=== PATIENT | male | born 1965 | race Caucasian/White ===

== ENCOUNTER 2017-07-06 22:39 | Inpatient (IN) | payer OTHER, BC ==
[2017-07-06] MEDS ORDERED: DIPHTH/TETANUS/ACEL PERTUSSIS (BOOSTER) 0.5 ML VIAL/PFS IM ONE (22:45)
[2017-07-06] MEDS ORDERED: SODIUM CHLORIDE 0.9% FLUSH 10 ML FLUSH IVF PRN (22:45)
[2017-07-06] MEDS ORDERED: ceFAZolin 2 GM PREMIX 50 ML IV ONE (22:45)
[2017-07-06] MEDS ORDERED: ONDANSETRON HCL 4 MG/2 ML VIAL IV PUSH ONE (22:45)
[2017-07-06] MEDS ORDERED: MORPHINE SULFATE 4 MG/ML INJ IV PUSH ONE (22:45)
[2017-07-06 23:00] VITALS: O2SAT 94
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
[2017-07-06 23:16] LABS: INTERNATIONAL NORMALIZED RATIO 0.9 RATIO; PROTHROMBIN TIME - PATIENT 9.9 SEC (9.8-11.6)
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
[2017-07-06 23:32] LABS: BASOPHIL # 0.1 TH/MM3 (0-0.2); BASOPHIL % 0.5 % (0.0-2.0); EOSINOPHIL # 0.1 TH/MM3 (0-0.4); EOSINOPHIL % 0.8 % (0.0-4.0); HEMOGLOBIN 14.4 GM/DL (13.0-17.0); LYMPH % 26.8 % (9.0-44.0); LYMPHOCYTE # 3.6 TH/MM3 (1.0-4.8); MEAN CELL VOLUME 89.9 FL (80.0-100.0); MEAN CORPUSCULAR HEMOGLOBIN 30.9 PG (27.0-34.0); MEAN CORPUSCULAR HGB CONC 34.4 % (32.0-36.0); MEAN PLATELET VOLUME 8.2 FL (7.0-11.0); MONO % 4.8 % (0.0-8.0); MONOCYTE # 0.6 TH/MM3 (0-0.9); NEUT % 67.1 % (16.0-70.0); PLATELET COUNT 272 TH/MM3 (150-450); RED BLOOD COUNT 4.68 MIL/MM3 (4.50-5.90); RED CELL DISTRIBUTION WIDTH 12.5 % (11.6-17.2); WHITE BLOOD COUNT 13.4 TH/MM3 (4.0-11.0)
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
[2017-07-06] MEDS ORDERED: IOHEXOL 350 MG/ML 10 ML VIAL (for RAD DIAG) IVCONTRAST ONE (23:35)
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
[2017-07-07] VITALS: BP 141/74; PULSE 106; RESP 20; O2SAT 97
[2017-07-07] MEDS ORDERED: ONDANSETRON HCL 4 MG/2 ML VIAL IV PUSH PRN (00:15)
[2017-07-07] MEDS ORDERED: SODIUM CHLORIDE 0.9% FLUSH 10 ML FLUSH IV FLUSH PRN (00:15)
[2017-07-07] MEDS ORDERED: HYDROmorphone HCL PF 0.5 MG/0.5 ML SYRINGE IV PRN (00:15)
[2017-07-07] MEDS ORDERED: NALOXONE HCL 0.4 MG/ML AMP IV PUSH PRN (00:15)
[2017-07-07] MEDS ORDERED: ACETAMINOPHEN/HYDROcodone 325 MG/5 MG TAB PO PRN (00:15)
[2017-07-07] MEDS ORDERED: Post-op Orders (for Pharmacy) MISC XX ONE (00:15)
[2017-07-07] MEDS ORDERED: LIDOCAINE 1%/EPINEPHrine 1:100,000 SOLN 20 ML VIAL ONE (00:23)
[2017-07-07] MEDS: SODIUM CHLOR 0.9% 1000 ML INJ 1,000 ML IV SCH ×2 (00:30→13:20)
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
--- NOTE | 2017-07-07 02:03 | PD ---
Physical Exam Date Seen by Provider: Jul 07, 2017 Time Seen by Provider: 02:01 Narrative For full history and physical examination please see previous provider's note. I was asked to repair laceration to patient's scalp. Data Data Last Documented VS Vital Signs Date Time Temp Pulse Resp B/P (MAP) Pulse Ox O2 Delivery O2 Flow Rate FiO2 07/06/17 23:00 94 3.00 07/06/17 23:00 Nasal Cannula Orders Orders I-Stat Profile (07/06/17:44) I-Stat Creatinine (07/06/17:44) Complete Blood Count With Diff (07/06/17:44) Prothrombin Time / Inr (Pt) (07/06/17:44) Act Partial Throm Time (Ptt) (07/06/17:44) Type And Screen (07/06/17:44) Chest, Single Ap (07/06/17:44) Pelvis, Ap Only (Routine) (07/06/17 22:44) Ct Brain W/O Iv Contrast(Rout) (07/06/17:44) Ct Cerv Spine W/O Contrast (07/06/17 22:44) Ct Abd/Pel W Iv Contrast(Rout) (07/06/17 22:44) Ct Thorax/ Chest W Iv Contrast (07/06/17 22:44) Ct Thor Spine W/O Contrast (07/06/17 22:44) Ct Lumb Spine W/O Contrast (07/06/17 22:44) Ct Facial Bones W/O Iv Cont (07/06/17 22:44) Electrocardiogram (07/06/17:44) Iv Access Insert/Monitor (07/06/17:44) Ecg Monitoring (07/06/17:44) Oximetry (07/06/17 22:44) Oxygen Administration (07/06/17:44) Remove Backboard (07/06/17 22:44) Cefazolin 2 Gm Premix (Ancef 2 Gm Premix (07/06/17 22:45) Morphine Inj (Morphine Inj) (07/06/17 22:45) Ondansetron Inj (Zofran Inj) (07/06/17 22:45) Rvxh-Kgp-Slydul (Booster) Inj (Boostrix (07/06/17 22:45) Sodium Chloride 0.9% Flush (Ns Flush) (07/06/17 22:45) Shoulder, Complete (>2vws) (07/06/17 ) Iohexol 350 Inj (Omnipaque 350 Inj) (07/06/17 23:35) Admit Order (Ed Use Only) (07/06/17 23:34) Labs Laboratory Tests Test 07/06/17 22:45 White Blood Count 13.4 TH/MM3 Red Blood Count 4.68 MIL/MM3 Hemoglobin 14.4 GM/DL Bedside Hemoglobin 15.0 G/DL Hematocrit 42.0 % Bedside Hematocrit 44.0 % Mean Corpuscular Volume 89.9 FL Mean Corpuscular Hemoglobin 30.9 PG Mean Corpuscular Hemoglobin Concent 34.4 % Red Cell Distribution Width 12.5 % Platelet Count 272 TH/MM3 Mean Platelet Volume 8.2 FL Neutrophils (%) (Auto) 67.1 % Lymphocytes (%) (Auto) 26.8 % Monocytes (%) (Auto) 4.8 % Eosinophils (%) (Auto) 0.8 % Basophils (%) (Auto) 0.5 % Neutrophils # (Auto) 9.0 TH/MM3 Lymphocytes # (Auto) 3.6 TH/MM3 Monocytes # (Auto) 0.6 TH/MM3 Eosinophils # (Auto) 0.1 TH/MM3 Basophils # (Auto) 0.1 TH/MM3 CBC Comment DIFF FINAL Differential Comment Prothrombin Time 9.9 SEC Prothromb Time International Ratio 0.9 RATIO Activated Partial Thromboplast Time 21.2 SEC Bedside Sodium 136 MMOL/L Bedside Potassium 3.4 MMOL/L Bedside Chloride 98 MMOL/L Bedside Blood Urea Nitrogen 16 MG/DL Bedside Creatinine 1.0 MG/DL Bedside Glucose 311 MG/DL [facility] Medical Record Reviewed: Yes Supervised Visit with SHANTEL: Yes Procedures Procedure Narrative LACERATION LOCATION: Posterior scalp LENGTH: 5 cm x 4 cm NUMBER OF STITCHES/CHRIS: 17 [place] REPAIR: The area of the laceration was prepped with Betadine and sterilely draped. The laceration was infiltrated with 1% lidocaine. The wound was copiously irrigated and explored without evidence of foreign body, tendon injury or neurovascular injury. The wound was closed using chris. This was a 1 layer repair. A sterile dressing was applied. The patient was advised to keep the dressing clean and dry. Patient tolerated the procedure well. Diagnosis Primary Impression: Right pulmonary contusion Qualified Codes: S27.321A - Contusion of lung, unilateral, initial encounter Additional Impressions: Multiple rib fractures Qualified Codes: S22.41XA - Multiple fractures of ribs, right side, initial encounter for closed fracture Scapular fracture Qualified Codes: S42.111A - Displaced fracture of body of scapula, right shoulder, initial encounter for closed fracture Occipital scalp laceration Qualified Codes: S01.01XA - Laceration without foreign body of scalp, initial encounter Facial contusion Qualified Codes: S00.83XA - Contusion of other part of head, initial encounter Closed head injury with loss of consciousness of unknown duration Pneumatocele of lung Scripts No Active Prescriptions or Reported Meds Yazmin Rocha Jul 07, 2017 02:02
[2017-07-07 02:30] VITALS: BP 130/71; PULSE 103; RESP 19; TEMP 99.7; O2SAT 95
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
[2017-07-07] MEDS: PANTOPRAZOLE SOD 40 MG DELAYED RELEASE TAB PO SCH (05:52)
[2017-07-07] MEDS ORDERED: LACTULOSE SYRUP 20 GM/30 ML CUP PO PRN (06:30)
[2017-07-07] MEDS: ACETAMINOPHEN 1000 MG/100 ML 100 ML IV SCH ×3 (06:36→18:21)
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
[2017-07-07 08:00] VITALS: BP 127/67; PULSE 92; RESP 18; TEMP 98.3; O2SAT 95
[2017-07-07] MEDS: METHOCARBAMOL 500 MG TAB PO SCH ×3 (08:50→20:48)
[2017-07-07] MEDS: DOCUSATE SODIUM 50 MG/SENNA 8.6 MG TAB PO SCH ×2 (08:52→20:48)
[2017-07-07] MEDS: SODIUM CHLORIDE 0.9% FLUSH 10 ML FLUSH IV FLUSH SCH ×2 (09:00→20:48)
[2017-07-07] MEDS: LIDOCAINE HCL 5% PATCH T-DERMAL SCH (09:28)
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
[2017-07-07 11:14] LABS: AUTOMATED NEUTROPHIL # 10.9 TH/MM3 (1.8-7.7); BASOPHIL % 0.1 % (0.0-2.0); HEMATOCRIT 37.2 % (39.0-51.0); HEMOGLOBIN 12.7 GM/DL (13.0-17.0); LYMPH % 8.7 % (9.0-44.0); LYMPHOCYTE # 1.1 TH/MM3 (1.0-4.8); MEAN CELL VOLUME 90.2 FL (80.0-100.0); MEAN CORPUSCULAR HEMOGLOBIN 30.8 PG (27.0-34.0); MEAN CORPUSCULAR HGB CONC 34.1 % (32.0-36.0); MONO % 6.4 % (0.0-8.0); MONOCYTE # 0.8 TH/MM3 (0-0.9); NEUT % 84.8 % (16.0-70.0); PLATELET COUNT 197 TH/MM3 (150-450); RED BLOOD COUNT 4.12 MIL/MM3 (4.50-5.90); RED CELL DISTRIBUTION WIDTH 12.6 % (11.6-17.2); WHITE BLOOD COUNT 12.9 TH/MM3 (4.0-11.0)
[2017-07-07 11:33] LABS: ALBUMIN 3.5 GM/DL (3.4-5.0); ALT (GPT) 76 U/L (12-78); AST (GOT) 53 U/L (15-37); BICARBONATE 26.5 MEQ/L (21.0-32.0); BLOOD UREA NITROGEN 15 MG/DL (7-18); CALCIUM 8.3 MG/DL (8.5-10.1); CHLORIDE 104 MEQ/L (98-107); CREATININE 0.89 MG/DL (0.60-1.30); GLOMERULAR FILTRATION RATE 90 ML/MIN (>89); GLUCOSE,RANDOM 244 MG/DL (74-106); SODIUM (NA) 135 MEQ/L (136-145)
[2017-07-07 11:36] LABS: ALKALINE PHOSPHATASE 76 U/L (45-117); TOTAL BILIRUBIN ADULT 0.9 MG/DL (0.2-1.0); TOTAL PROTEIN 6.4 GM/DL (6.4-8.2)
[2017-07-07 12:00] VITALS: BP 132/63; PULSE 73; RESP 18; TEMP 96.4; O2SAT 97
--- NOTE | 2017-07-07 13:20 | EKG ---
Date Performed: 07/06/2017 Time Performed: 23:39:52 PTAGE: 52 years EKG: SINUS TACHYCARDIA ABNORMAL RHYTHM ECG NO PREVIOUS TRACING DOCTOR: Edwina Castellanos Interpretating Date/Time 07/07/2017 13:19:45
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
[2017-07-07] MEDS: BACITRACIN TOP OINT 15 GM TUBE TOP SCH ×2 (15:46→20:50)
[2017-07-07 16:00] VITALS: BP 122/64; PULSE 78; RESP 18; TEMP 97.1; O2SAT 98
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
[2017-07-07 20:15] VITALS: BP 142/66; PULSE 73; RESP 18; TEMP 98.3; O2SAT 94
[2017-07-07] MEDS: REMOVE OLD PATCH-LIDOCAINE T-DERMAL SCH (20:48)
[2017-07-08] VITALS (7 sets, daily range): BP systolic 134–159; BP diastolic 54–86; PULSE 69–100; RESP 18–20; TEMP 98–99.4; O2SAT 91–96
[2017-07-08] MEDS: ACETAMINOPHEN 1000 MG/100 ML 100 ML IV SCH (00:08)
[2017-07-08] MEDS: SODIUM CHLOR 0.9% 1000 ML INJ 1,000 ML IV SCH ×2 (00:10→05:20)
[2017-07-08] MEDS: METHOCARBAMOL 500 MG TAB PO SCH ×3 (05:13→21:11)
[2017-07-08] MEDS: PANTOPRAZOLE SOD 40 MG DELAYED RELEASE TAB PO SCH (05:13)
[2017-07-08] MEDS: HYDROmorphone HCL PF 0.5 MG/0.5 ML SYRINGE IV PRN ×3 (05:14→19:49)
--- NOTE | 2017-07-08 06:48 | RADRPT ---
EXAM DATE/TIME: 07/08/2017 06:58 [facility] COMPARISON: CHEST SINGLE AP, July 07, 2017, 6:04. INDICATIONS : Chest and rib pain, short of breath MEDICAL HISTORY : right apical pneumothorax SURGICAL HISTORY : None. ENCOUNTER: Subsequent ACUITY: 2 days PAIN SCORE: 7/10 LOCATION: Bilateral chest FINDINGS: A single view of the chest demonstrates the lungs to be symmetrically aerated without evidence of mas s, infiltrate or effusion. The cardiomediastinal contours are unremarkable. Multiple right-sided rib fractures. No pneumothorax. Minimal subcutaneous emphysema on the right. CONCLUSION: Multiple right-sided rib fractures without pneumothorax. Vic Davis MD on July 08, 2017 at 6:43 Board Certified Radiologist. This report was verified electronically.
[2017-07-08] MEDS: DOCUSATE SODIUM 50 MG/SENNA 8.6 MG TAB PO SCH ×2 (08:38→21:12)
[2017-07-08] MEDS: SODIUM CHLORIDE 0.9% FLUSH 10 ML FLUSH IV FLUSH SCH ×2 (08:39→21:12)
[2017-07-08] MEDS: BACITRACIN TOP OINT 15 GM TUBE TOP SCH ×2 (08:39→21:12)
[2017-07-08] MEDS: LIDOCAINE HCL 5% PATCH T-DERMAL SCH (08:39)
[2017-07-08 09:01] LABS: BASOPHIL % 0.1 % (0.0-2.0); EOSINOPHIL % 0.4 % (0.0-4.0); HEMATOCRIT 35.6 % (39.0-51.0); HEMOGLOBIN 11.9 GM/DL (13.0-17.0); LYMPH % 15.9 % (9.0-44.0); LYMPHOCYTE # 1.5 TH/MM3 (1.0-4.8); MEAN CELL VOLUME 91.1 FL (80.0-100.0); MEAN CORPUSCULAR HEMOGLOBIN 30.5 PG (27.0-34.0); MEAN CORPUSCULAR HGB CONC 33.5 % (32.0-36.0); MEAN PLATELET VOLUME 7.9 FL (7.0-11.0); MONO % 6.9 % (0.0-8.0); MONOCYTE # 0.6 TH/MM3 (0-0.9); NEUT % 76.7 % (16.0-70.0); PLATELET COUNT 170 TH/MM3 (150-450); RED CELL DISTRIBUTION WIDTH 12.8 % (11.6-17.2); WHITE BLOOD COUNT 9.2 TH/MM3 (4.0-11.0)
[2017-07-08 10:02] LABS: BICARBONATE 23.4 MEQ/L (21.0-32.0); CALCIUM 8.6 MG/DL (8.5-10.1); CREATININE 0.66 MG/DL (0.60-1.30)
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
[2017-07-08] MEDS ORDERED: LACTULOSE SYRUP 20 GM/30 ML CUP PO ONE (17:15)
[2017-07-08] MEDS ORDERED: GLUCAGON 1 MG/ML VIAL OTHER PRN (17:15)
[2017-07-08] MEDS ORDERED: DEXTROSE 50% IN WATER 50 ML VIAL(D50) IV PUSH PRN (17:15)
[2017-07-08] MEDS ORDERED: QUAD CANE/LARGE1 MI5 (17:19)
--- NOTE | 2017-07-08 17:29 | HHI.FF ---
Face to Face Verification Diagnosis: (1) Lumbar compression fracture (2) Multiple rib fractures (3) Scapular fracture (4) Closed head injury with loss of consciousness of unknown duration Physical Therapy Order: Evaluate and Treat, Improve ambulation, Strength and gait training Home Health Nursing Order: Nursing assessment with vital signs I have seen patient Richar Farah on 07/08/17. My clinical findings support the need for the requested home health care services because: Limited ability to care for self High risk of falls I certify that my clinical findings support that this patient is homebound because: Unsteady gait/balance Carmelina Ocampo Jul 08, 2017 17:29
[2017-07-08] MEDS: REMOVE OLD DURAGESIC (FENTANYL) PATCH T-DERMAL SCH (18:00)
[2017-07-08] MEDS: fentaNYL 50 MCG/HR PATCH T-DERMAL SCH (18:07)
[2017-07-08] MEDS: ENOXAPARIN SODIUM 40 MG/0.4 ML SYRINGE SQ SCH (18:09)
[2017-07-08] MEDS: REMOVE OLD PATCH-LIDOCAINE T-DERMAL SCH (21:10)
[2017-07-08] MEDS: INSULIN NovoLIN REGULAR SUPPLEMENTAL SCALE SQ SCH (21:19)
[2017-07-09] VITALS (7 sets, daily range): BP systolic 132–168; BP diastolic 73–83; PULSE 80–117; RESP 17–20; TEMP 98.4–99.7; O2SAT 85–95
[2017-07-09] MEDS: PANTOPRAZOLE SOD 40 MG DELAYED RELEASE TAB PO SCH (05:04)
[2017-07-09] MEDS: METHOCARBAMOL 500 MG TAB PO SCH ×3 (05:04→21:25)
[2017-07-09] MEDS: HYDROmorphone HCL PF 0.5 MG/0.5 ML SYRINGE IV PRN ×2 (05:04→09:56)
[2017-07-09] MEDS: INSULIN NovoLIN REGULAR SUPPLEMENTAL SCALE SQ SCH ×4 (08:00→21:49)
[2017-07-09] MEDS ORDERED: MAGNESIUM CITRATE SOLN 300 ML BTL PO ONE (08:00)
[2017-07-09] MEDS: DOCUSATE SODIUM 50 MG/SENNA 8.6 MG TAB PO SCH ×2 (08:50→21:00)
[2017-07-09] MEDS: LIDOCAINE HCL 5% PATCH T-DERMAL SCH (09:56)
[2017-07-09] MEDS: SODIUM CHLORIDE 0.9% FLUSH 10 ML FLUSH IV FLUSH SCH ×2 (09:57→21:00)
[2017-07-09] MEDS: BACITRACIN TOP OINT 15 GM TUBE TOP SCH ×2 (09:57→21:00)
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
[2017-07-09 15:51] LABS: HEMOGLOBIN A1C 11.9 % (4.3-6.0)
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
[2017-07-09] MEDS: ENOXAPARIN SODIUM 40 MG/0.4 ML SYRINGE SQ SCH (17:55)
[2017-07-09] MEDS: REMOVE OLD PATCH-LIDOCAINE T-DERMAL SCH (21:00)
[2017-07-10] VITALS (11 sets, daily range): BP systolic 117–171; BP diastolic 63–86; PULSE 80–110; RESP 16–20; TEMP 98–98.9; O2SAT 84–97
[2017-07-10] MEDS: RESP: ALBUTEROL 2.5 MG/IPRATROPIUM 0.5 MG NEB (PRN) NEB ×3 (04:24→19:54)
--- NOTE | 2017-07-10 04:26 | RADRPT ---
EXAM DATE/TIME: 07/10/2017 04:29 [facility] COMPARISON: CHEST SINGLE AP, July 08, 2017, 6:58. INDICATIONS : Short of breath. MEDICAL HISTORY : None. SURGICAL HISTORY : None. ENCOUNTER: Subsequent ACUITY: 4 - 6 days PAIN SCORE: 0/10 LOCATION: Bilateral chest FINDINGS: A single view of the chest demonstrates bibasilar densities greater right lower lobe. The cardiomedia stinal contours are unremarkable. Bilateral rib fractures. CONCLUSION: Worsening bibasilar densities. Vic Davis MD on July 10, 2017 at 4:23 Board Certified Radiologist. This report was verified electronically.
[2017-07-10] MEDS: PANTOPRAZOLE SOD 40 MG DELAYED RELEASE TAB PO SCH (05:51)
[2017-07-10] MEDS: METHOCARBAMOL 500 MG TAB PO SCH ×3 (05:51→21:40)
[2017-07-10] MEDS ORDERED: ENALAPRILAT 1.25 MG/ML VIAL IV PUSH PRN (08:00)
[2017-07-10] MEDS: LIDOCAINE HCL 5% PATCH T-DERMAL SCH (08:27)
[2017-07-10] MEDS: metFORMIN HCL 500 MG TAB PO SCH ×2 (08:28→18:28)
[2017-07-10] MEDS: LISINOPRIL 20 MG TAB PO SCH (08:28)
[2017-07-10] MEDS: DOCUSATE SODIUM 50 MG/SENNA 8.6 MG TAB PO SCH ×2 (08:30→21:00)
[2017-07-10] MEDS: SODIUM CHLORIDE 0.9% FLUSH 10 ML FLUSH IV FLUSH SCH ×2 (08:30→21:00)
[2017-07-10] MEDS: BACITRACIN TOP OINT 15 GM TUBE TOP SCH ×2 (08:31→21:45)
[2017-07-10 09:48] LABS: AUTOMATED NEUTROPHIL # 7.2 TH/MM3 (1.8-7.7); BASOPHIL % 0.2 % (0.0-2.0); EOSINOPHIL # 0.1 TH/MM3 (0-0.4); EOSINOPHIL % 0.6 % (0.0-4.0); HEMATOCRIT 36.2 % (39.0-51.0); HEMOGLOBIN 12.5 GM/DL (13.0-17.0); LYMPH % 10.1 % (9.0-44.0); LYMPHOCYTE # 0.9 TH/MM3 (1.0-4.8); MEAN CELL VOLUME 89.8 FL (80.0-100.0); MEAN CORPUSCULAR HEMOGLOBIN 30.9 PG (27.0-34.0); MEAN CORPUSCULAR HGB CONC 34.5 % (32.0-36.0); MEAN PLATELET VOLUME 7.6 FL (7.0-11.0); MONO % 7.9 % (0.0-8.0); MONOCYTE # 0.7 TH/MM3 (0-0.9); NEUT % 81.2 % (16.0-70.0); PLATELET COUNT 198 TH/MM3 (150-450); RED BLOOD COUNT 4.03 MIL/MM3 (4.50-5.90); RED CELL DISTRIBUTION WIDTH 12.6 % (11.6-17.2); WHITE BLOOD COUNT 8.9 TH/MM3 (4.0-11.0)
[2017-07-10 10:11] LABS: BICARBONATE 28.9 MEQ/L (21.0-32.0); CALCIUM 8.7 MG/DL (8.5-10.1); CREATININE 0.61 MG/DL (0.60-1.30)
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
[2017-07-10] MEDS: RESP: ACETYLCYSTEINE 10% 30 ML NEB NEB SCH ×2 (16:00→19:54)
[2017-07-10] MEDS: ENOXAPARIN SODIUM 40 MG/0.4 ML SYRINGE SQ SCH (18:28)
[2017-07-10] MEDS ORDERED: SENN1TAB PO (20:45)
[2017-07-10] MEDS: LACTULOSE SYRUP 20 GM/30 ML CUP PO SCH (20:45)
[2017-07-10] MEDS ORDERED: MAGN400S PO (20:45)
[2017-07-10] MEDS: REMOVE OLD PATCH-LIDOCAINE T-DERMAL SCH (21:00)
[2017-07-10] MEDS: MAGNESIUM HYDROXIDE SUSP 30 ML CUP PO SCH (21:00)
[2017-07-11] VITALS (8 sets, daily range): BP systolic 122–128; BP diastolic 57–67; PULSE 85–91; RESP 18–20; TEMP 97.5–98.8; O2SAT 91–96
[2017-07-11] MEDS: RESP: ALBUTEROL 2.5 MG/IPRATROPIUM 0.5 MG NEB (PRN) NEB ×6 (00:43→21:04)
[2017-07-11] MEDS: RESP: ACETYLCYSTEINE 10% 30 ML NEB NEB SCH ×6 (03:52→20:00)
[2017-07-11] MEDS: METHOCARBAMOL 500 MG TAB PO SCH ×3 (05:38→20:47)
[2017-07-11] MEDS: PANTOPRAZOLE SOD 40 MG DELAYED RELEASE TAB PO SCH (05:38)
[2017-07-11] MEDS: metFORMIN HCL 500 MG TAB PO SCH ×2 (08:06→16:17)
[2017-07-11] MEDS: BACITRACIN TOP OINT 15 GM TUBE TOP SCH ×2 (08:07→20:46)
[2017-07-11] MEDS: DOCUSATE SODIUM 50 MG/SENNA 8.6 MG TAB PO SCH ×2 (08:07→20:46)
[2017-07-11] MEDS: LISINOPRIL 20 MG TAB PO SCH (08:07)
[2017-07-11] MEDS: LACTULOSE SYRUP 20 GM/30 ML CUP PO SCH (08:07)
[2017-07-11] MEDS: SODIUM CHLORIDE 0.9% FLUSH 10 ML FLUSH IV FLUSH SCH ×2 (08:07→20:45)
[2017-07-11] MEDS: LIDOCAINE HCL 5% PATCH T-DERMAL SCH (08:08)
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
[2017-07-11] MEDS ORDERED: IBUPROFEN 600 MG TAB PO SCH (12:30)
--- NOTE | 2017-07-11 14:25 | PD.CONS ---
HPI Consult Requested By Diagnoses: Past Family Social History Allergies: Coded Allergies: No Known Allergies (Unverified , 07/06/17) Physical Exam Vital Signs Result Diagram: 07/10/1722 07/10/1722 Doreen Dove MD Jul 11, 2017 14:25
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
[2017-07-11] MEDS ORDERED: GLUCAGON 1 MG/ML VIAL OTHER PRN (14:45)
[2017-07-11] MEDS ORDERED: DEXTROSE 50% IN WATER 50 ML VIAL(D50) IV PUSH PRN (14:45)
[2017-07-11] MEDS: ENOXAPARIN SODIUM 40 MG/0.4 ML SYRINGE SQ SCH (16:17)
[2017-07-11] MEDS: INSULIN ASPART SUPPLEMENTAL SCALE SQ SCH ×2 (16:18→20:46)
[2017-07-11] MEDS: fentaNYL 50 MCG/HR PATCH T-DERMAL SCH (16:21)
[2017-07-11] MEDS: REMOVE OLD DURAGESIC (FENTANYL) PATCH T-DERMAL SCH (16:22)
[2017-07-11] MEDS: MAGNESIUM HYDROXIDE SUSP 30 ML CUP PO SCH (20:45)
[2017-07-11] MEDS: REMOVE OLD PATCH-LIDOCAINE T-DERMAL SCH (20:49)
[2017-07-12] VITALS (10 sets, daily range): BP systolic 103–159; BP diastolic 57–88; PULSE 88–93; RESP 13–20; TEMP 97.8–99.4; O2SAT 94–98
[2017-07-12] MEDS: RESP: ACETYLCYSTEINE 10% 30 ML NEB NEB SCH ×6 (01:39→21:50)
[2017-07-12] MEDS: RESP: ALBUTEROL 2.5 MG/IPRATROPIUM 0.5 MG NEB (PRN) NEB ×5 (01:41→21:50)
[2017-07-12] MEDS: METHOCARBAMOL 500 MG TAB PO SCH ×3 (04:32→21:18)
[2017-07-12] MEDS: PANTOPRAZOLE SOD 40 MG DELAYED RELEASE TAB PO SCH (04:32)
[2017-07-12 06:59] LABS: AUTOMATED NEUTROPHIL # 3.1 TH/MM3 (1.8-7.7); BASOPHIL % 0.5 % (0.0-2.0); EOSINOPHIL # 0.2 TH/MM3 (0-0.4); HEMATOCRIT 33.7 % (39.0-51.0); HEMOGLOBIN 11.6 GM/DL (13.0-17.0); LYMPHOCYTE # 0.9 TH/MM3 (1.0-4.8); MEAN CELL VOLUME 90.3 FL (80.0-100.0); MEAN CORPUSCULAR HEMOGLOBIN 31.1 PG (27.0-34.0); MEAN CORPUSCULAR HGB CONC 34.4 % (32.0-36.0); MEAN PLATELET VOLUME 7.7 FL (7.0-11.0); MONO % 16.2 % (0.0-8.0); MONOCYTE # 0.8 TH/MM3 (0-0.9); NEUT % 61.3 % (16.0-70.0); PLATELET COUNT 248 TH/MM3 (150-450); RED BLOOD COUNT 3.74 MIL/MM3 (4.50-5.90); RED CELL DISTRIBUTION WIDTH 12.3 % (11.6-17.2); WHITE BLOOD COUNT 5.1 TH/MM3 (4.0-11.0)
[2017-07-12 07:03] LABS: ALBUMIN 2.8 GM/DL (3.4-5.0); AST (GOT) 23 U/L (15-37); BICARBONATE 28.4 MEQ/L (21.0-32.0); BLOOD UREA NITROGEN 27 MG/DL (7-18); CALCIUM 9.1 MG/DL (8.5-10.1); CHLORIDE 96 MEQ/L (98-107); CREATININE 0.69 MG/DL (0.60-1.30); GLOMERULAR FILTRATION RATE 120 ML/MIN (>89); GLUCOSE,RANDOM 184 MG/DL (74-106); SODIUM (NA) 133 MEQ/L (136-145)
[2017-07-12 07:04] LABS: ALT (GPT) 47 U/L (12-78)
[2017-07-12 07:06] LABS: ALKALINE PHOSPHATASE 67 U/L (45-117); TOTAL BILIRUBIN ADULT 1.1 MG/DL (0.2-1.0); TOTAL PROTEIN 6.1 GM/DL (6.4-8.2)
[2017-07-12] MEDS: INSULIN ASPART SUPPLEMENTAL SCALE SQ SCH ×4 (08:00→21:00)
--- NOTE | 2017-07-12 08:36 | RADRPT ---
EXAM DATE/TIME: 07/12/2017 08:01 [facility] COMPARISON: CHEST SINGLE AP, July 10, 2017, 4:29. INDICATIONS : Shortness of breath and right sided chest and arm pain. MEDICAL HISTORY : Right apical pneumothorax. SURGICAL HISTORY : None. ENCOUNTER: Initial ACUITY: 4 - 6 days PAIN SCORE: 4/10 LOCATION: Right chest FINDINGS: There is slight interval worsening of the right apical pneumothorax which now measures 18 mm in size. Multiple fractures of the right rib cage are again noted. Fracture of the right scapula is also ag ain noted. Bibasilar atelectasis is noted. The heart is stable. CONCLUSION: 1. Interval slight worsening of the right apical pneumothorax which measures 18 mm. 2. Bibasilar atelectasis. 3. Multiple fractures of the right rib cage and scapula are noted. Alfredo Beckett MD on July 12, 2017 at 8:01 Board Certified Radiologist. This report was verified electronically.
[2017-07-12] MEDS: metFORMIN HCL 500 MG TAB PO SCH ×2 (08:44→17:14)
[2017-07-12] MEDS: LISINOPRIL 20 MG TAB PO SCH (08:44)
[2017-07-12] MEDS: LIDOCAINE HCL 5% PATCH T-DERMAL SCH (08:45)
[2017-07-12] MEDS: LACTULOSE SYRUP 20 GM/30 ML CUP PO SCH (08:45)
[2017-07-12] MEDS: DOCUSATE SODIUM 50 MG/SENNA 8.6 MG TAB PO SCH ×2 (08:45→21:00)
[2017-07-12] MEDS: BACITRACIN TOP OINT 15 GM TUBE TOP SCH ×2 (08:47→21:00)
[2017-07-12] MEDS: SODIUM CHLORIDE 0.9% FLUSH 10 ML FLUSH IV FLUSH SCH ×2 (08:52→21:00)
[2017-07-12] MEDS: ENOXAPARIN SODIUM 40 MG/0.4 ML SYRINGE SQ SCH (10:27)
[2017-07-12] MEDS: glyBURIDE 5 MG TAB PO SCH (12:00)
[2017-07-12] MEDS ORDERED: SODIUM CHLOR 0.9% 1000 ML INJ 1,000 ML IV SCH (12:30)
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
[2017-07-12] MEDS ORDERED: MIDAZOLAM HCL 2 MG/2 ML VIAL ONE (15:03)
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
--- NOTE | 2017-07-12 16:51 | RADRPT ---
EXAM DATE/TIME: 07/12/2017 16:29 [facility] COMPARISON: CHEST SINGLE AP, July 12, 2017, 8:01. INDICATIONS : Post right sided chest tube placement MEDICAL HISTORY : None. SURGICAL HISTORY : None. ENCOUNTER: Initial ACUITY: 1 day PAIN SCORE: 5/10 LOCATION: Right chest FINDINGS: Expiratory view of the chest after placement of a right chest catheter the right apex demonstrates re solution of the right pneumothorax. There is persistent patchy areas of infiltrate in the lower lung s. Incidental note of azygous lobe. The heart is normal size. CONCLUSION: Resolution of right apical pneumothorax status post chest catheter placement. Felix Duvall MD on July 12, 2017 at 16:48 Board Certified Radiologist. This report was verified electronically.
--- NOTE | 2017-07-12 16:57 | PD.RAD ---
Post Procedure Progress Note Pre Procedure Diagnosis: (1) Pneumothorax, right (2) Multiple rib fractures Post Procedure Diagnosis: (1) Multiple rib fractures (2) Pneumothorax, right Procedure Date: Jul 12, 2017 Supervising Radiologist: Carlos Martinez Proceduralist/Assist: Daniel Quiroz, RT(R), Deborah Lucas RT(R) Anesthesia: Local, Analgesia, Conscious Sedation Plan of Activity Patient to Unit: ROPU Patient Condition: Good See PACS Report for procedural detail/treatment Drainage Procedure Procedure 1 Imaging Guidance: Fluoroscopy Side: Right Procedure Type: Chest Tube Non-Tunneled Procedure: Placement [place]: 10 Drainage: Pleurovac (40 cm) Fluid Description: Bloody Carlos Martinez MD Jul 12, 2017 16:57
[2017-07-12] MEDS: MAGNESIUM HYDROXIDE SUSP 30 ML CUP PO SCH (21:00)
[2017-07-12] MEDS: REMOVE OLD PATCH-LIDOCAINE T-DERMAL SCH (21:00)
[2017-07-13] VITALS (7 sets, daily range): BP systolic 128–144; BP diastolic 64–73; PULSE 82–94; RESP 18–19; TEMP 98–98.7; O2SAT 94–97
[2017-07-13] MEDS: RESP: ALBUTEROL 2.5 MG/IPRATROPIUM 0.5 MG NEB (PRN) NEB ×6 (00:04→19:41)
[2017-07-13] MEDS: RESP: ACETYLCYSTEINE 10% 30 ML NEB NEB SCH ×6 (04:00→19:41)
[2017-07-13] MEDS: PANTOPRAZOLE SOD 40 MG DELAYED RELEASE TAB PO SCH (04:11)
[2017-07-13] MEDS: METHOCARBAMOL 500 MG TAB PO SCH ×3 (04:11→21:50)
--- NOTE | 2017-07-13 05:47 | RADRPT ---
EXAM DATE/TIME: 07/13/2017 05:57 [facility] COMPARISON: CHEST EXPIRATION ONLY, July 12, 2017, 16:29. INDICATIONS : Pneumothorax. MEDICAL HISTORY : None. SURGICAL HISTORY : None. ENCOUNTER: Subsequent ACUITY: 1 week PAIN SCORE: Non-responsive. LOCATION: Bilateral chest FINDINGS: Small caliber chest tube again noted on the right. No pneumothorax seen. Multiple right rib fractures are again seen. There is mild bibasilar atelectasis not significantly changed. No large effusion. Heart size stable, upper limits of normal. CONCLUSION: No significant change. Rib fractures and a chest tube again seen on the right. No perceptible pneumot horax. Stanton Ordonez MD on July 13, 2017 at 5:45 Board Certified Radiologist. This report was verified electronically.
[2017-07-13] MEDS: LACTULOSE SYRUP 20 GM/30 ML CUP PO SCH (07:37)
[2017-07-13] MEDS: DOCUSATE SODIUM 50 MG/SENNA 8.6 MG TAB PO SCH ×3 (07:37→21:00)
[2017-07-13] MEDS: INSULIN ASPART SUPPLEMENTAL SCALE SQ SCH ×4 (08:00→21:00)
[2017-07-13] MEDS: SODIUM CHLORIDE 0.9% FLUSH 10 ML FLUSH IV FLUSH SCH ×2 (08:56→21:51)
[2017-07-13] MEDS: BACITRACIN TOP OINT 15 GM TUBE TOP SCH ×2 (08:57→21:54)
[2017-07-13] MEDS: LISINOPRIL 20 MG TAB PO SCH (08:57)
[2017-07-13] MEDS: metFORMIN HCL 500 MG TAB PO SCH ×2 (08:57→16:52)
[2017-07-13] MEDS: LIDOCAINE HCL 5% PATCH T-DERMAL SCH (08:57)
[2017-07-13] MEDS: glyBURIDE 5 MG TAB PO SCH (09:00)
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
[2017-07-13] MEDS: ENOXAPARIN SODIUM 40 MG/0.4 ML SYRINGE SQ SCH (16:52)
[2017-07-13] MEDS: REMOVE OLD PATCH-LIDOCAINE T-DERMAL SCH (21:00)
[2017-07-13] MEDS: MAGNESIUM HYDROXIDE SUSP 30 ML CUP PO SCH (21:00)
[2017-07-14] VITALS (8 sets, daily range): BP systolic 130–149; BP diastolic 62–71; PULSE 85–91; RESP 18–20; TEMP 97.8–98.7; O2SAT 93–95
[2017-07-14] MEDS: RESP: ACETYLCYSTEINE 10% 30 ML NEB NEB SCH ×3 (04:00→08:00)
[2017-07-14] MEDS: RESP: ALBUTEROL 2.5 MG/IPRATROPIUM 0.5 MG NEB (PRN) NEB ×2 (04:19→08:46)
[2017-07-14] MEDS: PANTOPRAZOLE SOD 40 MG DELAYED RELEASE TAB PO SCH (05:26)
[2017-07-14] MEDS: METHOCARBAMOL 500 MG TAB PO SCH ×3 (05:26→21:59)
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
[2017-07-14] MEDS: INSULIN ASPART SUPPLEMENTAL SCALE SQ SCH ×4 (08:00→21:00)
[2017-07-14] MEDS: BACITRACIN TOP OINT 15 GM TUBE TOP SCH ×2 (09:00→21:59)
[2017-07-14] MEDS: LACTULOSE SYRUP 20 GM/30 ML CUP PO SCH (09:00)
[2017-07-14] MEDS: SODIUM CHLORIDE 0.9% FLUSH 10 ML FLUSH IV FLUSH SCH ×2 (09:00→21:58)
[2017-07-14] MEDS: DOCUSATE SODIUM 50 MG/SENNA 8.6 MG TAB PO SCH ×2 (09:00→21:00)
[2017-07-14] MEDS: LIDOCAINE HCL 5% PATCH T-DERMAL SCH (09:09)
[2017-07-14] MEDS: metFORMIN HCL 500 MG TAB PO SCH ×2 (09:09→17:33)
[2017-07-14] MEDS: glyBURIDE 5 MG TAB PO SCH (09:09)
[2017-07-14] MEDS: LISINOPRIL 20 MG TAB PO SCH (09:09)
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
[2017-07-14] MEDS: ENOXAPARIN SODIUM 40 MG/0.4 ML SYRINGE SQ SCH (17:33)
[2017-07-14] MEDS: fentaNYL 50 MCG/HR PATCH T-DERMAL SCH (17:33)
[2017-07-14] MEDS: REMOVE OLD DURAGESIC (FENTANYL) PATCH T-DERMAL SCH (17:33)
[2017-07-14] MEDS: MAGNESIUM HYDROXIDE SUSP 30 ML CUP PO SCH (21:00)
[2017-07-14] MEDS: REMOVE OLD PATCH-LIDOCAINE T-DERMAL SCH (21:00)
[2017-07-15] VITALS (7 sets, daily range): BP systolic 123–136; BP diastolic 57–66; PULSE 84–95; RESP 18–20; TEMP 97.1–98.2; O2SAT 90–98
[2017-07-15 03:29] LABS: AUTOMATED NEUTROPHIL # 4.8 TH/MM3 (1.8-7.7); BASOPHIL % 0.4 % (0.0-2.0); EOSINOPHIL # 0.1 TH/MM3 (0-0.4); HEMATOCRIT 33.5 % (39.0-51.0); HEMOGLOBIN 11.6 GM/DL (13.0-17.0); LYMPH % 20.4 % (9.0-44.0); LYMPHOCYTE # 1.5 TH/MM3 (1.0-4.8); MEAN CELL VOLUME 89.7 FL (80.0-100.0); MEAN CORPUSCULAR HEMOGLOBIN 31.1 PG (27.0-34.0); MEAN CORPUSCULAR HGB CONC 34.7 % (32.0-36.0); MEAN PLATELET VOLUME 7.1 FL (7.0-11.0); MONO % 12.8 % (0.0-8.0); NEUT % 64.4 % (16.0-70.0); PLATELET COUNT 291 TH/MM3 (150-450); RED BLOOD COUNT 3.73 MIL/MM3 (4.50-5.90); RED CELL DISTRIBUTION WIDTH 12.3 % (11.6-17.2); WHITE BLOOD COUNT 7.4 TH/MM3 (4.0-11.0)
[2017-07-15 03:57] LABS: BICARBONATE 31.6 MEQ/L (21.0-32.0); CALCIUM 8.4 MG/DL (8.5-10.1); CREATININE 0.54 MG/DL (0.60-1.30)
[2017-07-15] MEDS: METHOCARBAMOL 500 MG TAB PO SCH ×3 (05:40→22:08)
[2017-07-15] MEDS: PANTOPRAZOLE SOD 40 MG DELAYED RELEASE TAB PO SCH (05:40)
--- NOTE | 2017-07-15 06:48 | RADRPT ---
EXAM DATE/TIME: 07/15/2017 06:41 [place] COMPARISON: CHEST SINGLE AP, July 14, 2017, 5:40. INDICATIONS : Short of breath, evaluate right side chest tube and pneumothorax, pain right side MEDICAL HISTORY : pneumothorax SURGICAL HISTORY : chest tube ENCOUNTER: Subsequent ACUITY: 1 week PAIN SCORE: 5/10 LOCATION: Right chest FINDINGS: Right apical pigtail thoracostomy tube remains in place. There is no evidence of pneumothorax. Bibasi lar atelectasis persists. Cardiac contours are unchanged. CONCLUSION: Stable chest appearance. Stanton Martins MD on July 15, 2017 at 6:46 Board Certified Radiologist. This report was verified electronically.
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
[2017-07-15] MEDS: metFORMIN HCL 500 MG TAB PO SCH ×2 (09:24→17:23)
[2017-07-15] MEDS: glyBURIDE 5 MG TAB PO SCH (09:24)
[2017-07-15] MEDS: LISINOPRIL 20 MG TAB PO SCH (09:24)
[2017-07-15] MEDS: LIDOCAINE HCL 5% PATCH T-DERMAL SCH (09:26)
[2017-07-15] MEDS: BACITRACIN TOP OINT 15 GM TUBE TOP SCH ×2 (09:26→22:19)
[2017-07-15] MEDS: LACTULOSE SYRUP 20 GM/30 ML CUP PO SCH (09:27)
[2017-07-15] MEDS: SODIUM CHLORIDE 0.9% FLUSH 10 ML FLUSH IV FLUSH SCH ×2 (09:27→22:18)
[2017-07-15] MEDS: INSULIN ASPART SUPPLEMENTAL SCALE SQ SCH ×4 (09:27→21:00)
[2017-07-15] MEDS: DOCUSATE SODIUM 50 MG/SENNA 8.6 MG TAB PO SCH ×2 (09:27→21:00)
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
[2017-07-15] MEDS ORDERED: PERC5TAB12 PO (13:10)
[2017-07-15] MEDS ORDERED: GLYB5TAB3 PO (13:10)
[2017-07-15] MEDS ORDERED: METH500T3 PO (13:10)
[2017-07-15] MEDS ORDERED: LIDO5DIS5 T-DERMAL (13:10)
[2017-07-15] MEDS ORDERED: METF500 PO (13:10)
[2017-07-15] MEDS ORDERED: LISI-515 PO (13:10)
[2017-07-15] MEDS: ENOXAPARIN SODIUM 40 MG/0.4 ML SYRINGE SQ SCH (17:22)
[2017-07-15] MEDS: MAGNESIUM HYDROXIDE SUSP 30 ML CUP PO SCH (21:00)
[2017-07-15] MEDS: REMOVE OLD PATCH-LIDOCAINE T-DERMAL SCH (21:00)
[2017-07-16 00:17] VITALS: BP 135/64; PULSE 97; RESP 20; TEMP 98.1; O2SAT 94
[2017-07-16 04:40] VITALS: BP 127/65; PULSE 89; RESP 20; TEMP 98.1; O2SAT 94
[2017-07-16] MEDS: METHOCARBAMOL 500 MG TAB PO SCH ×2 (05:51→13:22)
[2017-07-16] MEDS: PANTOPRAZOLE SOD 40 MG DELAYED RELEASE TAB PO SCH (05:51)
--- NOTE | 2017-07-16 07:02 | RADRPT ---
EXAM DATE/TIME: 07/16/2017 05:49 CORRECTION Corrected on: July 16, 2017; Updated report time [place] COMPARISON: CHEST SINGLE AP, July 15, 2017, 6:41. INDICATIONS : Short of breath, pain right chest MEDICAL HISTORY : pneumothorax SURGICAL HISTORY : chest tube ENCOUNTER: Subsequent ACUITY: 1 week PAIN SCORE: 4/10 LOCATION: Bilateral chest FINDINGS: Right apical thoracostomy tube has been removed. There is no evidence pneumothorax. Bibasilar atelect asis is improving. Heart and mediastinal structures are stable. Right-sided rib fractures and fractured right scapula again noted.. CONCLUSION: Status post removal of right thoracostomy tube with no evidence of recurrent pneumothorax. Improving bibasilar atelectasis. Darren Box MD on July 16, 2017 at 6:58
[2017-07-16 07:52] VITALS: BP 135/67; PULSE 82; RESP 20; TEMP 97.2; O2SAT 96
[2017-07-16] MEDS: metFORMIN HCL 500 MG TAB PO SCH (08:44)
[2017-07-16] MEDS: LIDOCAINE HCL 5% PATCH T-DERMAL SCH (08:44)
[2017-07-16] MEDS: glyBURIDE 5 MG TAB PO SCH (08:44)
[2017-07-16] MEDS: LISINOPRIL 20 MG TAB PO SCH (08:44)
[2017-07-16] MEDS: BACITRACIN TOP OINT 15 GM TUBE TOP SCH (08:45)
[2017-07-16] MEDS: SODIUM CHLORIDE 0.9% FLUSH 10 ML FLUSH IV FLUSH SCH (08:45)
[2017-07-16] MEDS: INSULIN ASPART SUPPLEMENTAL SCALE SQ SCH ×2 (08:45→12:01)
[2017-07-16] MEDS: DOCUSATE SODIUM 50 MG/SENNA 8.6 MG TAB PO SCH (08:45)
[2017-07-16] MEDS: LACTULOSE SYRUP 20 GM/30 ML CUP PO SCH (08:45)
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
[2017-07-16] MEDS ORDERED: TIOTROPIUM BROMIDE 18 MCG INH INH SCH (10:00)
[2017-07-16 10:15] VITALS: O2SAT 95
[2017-07-16] MEDS ORDERED: NICO14DI T-DERMAL (11:12)
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
[2017-07-16 12:07] VITALS: BP 125/65; PULSE 101; RESP 20; TEMP 97.5; O2SAT 92
== END 2017-07-16 15:53 | disposition home health service (06) | DRG 964 ==
LOC: NEPC 22:39 → NEDA 23:36 → N05B 07-07 01:53
PROVIDERS: ADMIT Surgery; ATTEND Surgery
PROC: 0HQ0XZZ Repair Scalp Skin, External Approach (ICD-10-PCS; principal; 2017-07-07)
PROC: 0W9930Z Drainage of Right Pleural Cavity with Drainage Device, Percutaneous Approach (ICD-10-PCS; 2017-07-12)
DX: S27.321A Contusion of lung, unilateral, initial encounter (principal); S22.41XA Multiple fractures of ribs, right side, initial encounter for closed fracture; S36.113A Laceration of liver, unspecified degree, initial encounter; S27.1XXA Traumatic hemothorax, initial encounter; S06.9X9A Unspecified intracranial injury with loss of consciousness of unspecified duration, initial encounter; S27.2XXA Traumatic hemopneumothorax, initial encounter; S32.040A Wedge compression fracture of fourth lumbar vertebra, initial encounter for closed fracture; E11.65 Type 2 diabetes mellitus with hyperglycemia; J98.4 Other disorders of lung; S42.141A Displaced fracture of glenoid cavity of scapula, right shoulder, initial encounter for closed fracture; S01.01XA Laceration without foreign body of scalp, initial encounter; F17.210 Nicotine dependence, cigarettes, uncomplicated; I10 Essential (primary) hypertension; S01.111A Laceration without foreign body of right eyelid and periocular area, initial encounter; J44.9 Chronic obstructive pulmonary disease, unspecified; K76.9 Liver disease, unspecified; M54.5 Low back pain; M54.6 Pain in thoracic spine; M25.511 Pain in right shoulder; R40.2412 Glasgow coma scale score 13-15, at arrival to emergency department; Y92.410 Unspecified street and highway as the place of occurrence of the external cause; V29.9XXA Motorcycle rider (driver) (passenger) injured in unspecified traffic accident, initial encounter
CPT/HCPCS: 32557; 70450; 70486; 71010; 71260; 72125; 72128; 72131; 72170; 73030; 74177; 80048; 80053; 82043; 82435; 82565; 82947; 82948; 83036; 84132; 84295; 84520; 85025; 85610; 85730; 86850; 86900; 86901; 90715; 93005; 94150; 94620; 94640; 94664; 94667; 94668; 99152; J1170; C1729; C1769; J0131; J1650; J1815; J2250; J3010; J7030; J7608; L0200; L0484; Q9967